=== PATIENT | male | born 1935 | race Caucasian/White ===

== ENCOUNTER 2018-08-29 01:06 | Observation (INO) | payer MEDICARE ==
[~2018-08-29] VITALS: Ht 210.8 cm; Wt 136.4 kg
[2018-08-29] VITALS (8 sets, daily range): BP systolic 93–122; BP diastolic 38–68; Ht 210.8 cm; Wt 136.4 kg
--- NOTE | ~2018-08-29 | MORECARE ---
CASE MANAGEMENT DISCHARGE SUMMARY PATIENT: JESSICA JOHNSTON UNIT: [id number] ADM DATE: 08/29/18 AGE: 83 : 35 SEX: M ROOM/BED: D.2234 AUTHOR: DEMI LEE PHYSICIAN: REFERRING PHYSICIAN: KIM PISANO MD DATE OF SERVICE: 08/30/18 Discharge Plan Patient Name: JESSICA JOHNSTON Facility: [facility]:[place] : 1935 Planned Disposition: Anticipated Discharge Date: Discharge Date: 08/29/2018 Expected LOS: 0 Initial Reviewer: [email or web address] Initial Review Date: 08/30/2018 Generated: 08/30/18 5:50 pm Patient Name: JESSICA JOHNSTON Page [id number] at 1650 All edits/amendments must be made on the electronic document DICTATION DATE: 08/30/181649 DRY CLEANER HELPER: GEETHA 08/30/181649 RPT#: [id number] DC DATE:08/29/18 STATUS: DIS IN [facility] [address] [facility] [place] [id number] END OF REPORT
[2018-08-29 01:02] LABS: ALBUMIN 3.2 g/dL (3.4-5.0); ANION GAP 13.7 mmol/L (8-16); BILIRUBIN - TOTAL 0.99 mg/dL (0.2-1.3); CALCIUM 8.3 mg/dL (8.5-10.1); CARBON DIOXIDE 25.5 mmol/L (21.0-32.0); CREATININE - SERUM 1.5 mg/dL (0.6-1.3); POTASSIUM - SERUM 4.2 mmol/L (3.5-5.1); PROTEIN - SERUM 6.9 g/dL (6.4-8.2)
[~2018-08-29 01:06] MED LIST: ACTOS30 MG PO; BAYER CHEWABLE81 MG PO; GLIMEPIRIDE4 MG PO; PAXIL20 MG PO; PRAVACHOL40 MG PO; TOPROL XL25 MG PO; [UNRECOGNIZED DRUG - REMARK]
[2018-08-29 01:10] LABS: KETONE - SERUM NEGATIVE (NEGATIVE)
[2018-08-29 01:20] LABS: MAGNESIUM - SERUM 1.3 mg/dL (1.8-2.4)
[2018-08-29 01:26] LABS: APPEARANCE CLEAR (CLEAR); BILIRUBIN NEGATIVE (NEGATIVE); COLOR YELLOW (YELLOW); GLUCOSE 250 mg/dL (NEGATIVE); KETONE NEGATIVE (NEGATIVE); NITRITE NEGATIVE (NEGATIVE); PROTEIN NEGATIVE (NEGATIVE); SPECIFIC GRAVITY 1.015 (1.005-1.020); UROBILINOGEN NORMAL (NORMAL)
[2018-08-29 01:47] LABS: BASOPHILS 0.1 % (0-2); EOSINOPHILS 0.1 % (0-7); HEMATOCRIT 41.7 % (42.0-54.0); IMMATURE GRANULOCYTES 0.6 % (0-5); MCH 30.6 pg (26.0-34.0); MCHC 33.6 g/dL (31.0-37.0); MCV 91.2 fL (80.0-100.0); MEAN PLATELET VOLUME 9.3 fL (7.4-10.4); NEUTROPHILS 90.2 % (40-80); PLATELET COUNT 169 10x3/uL (130-400); RBC 4.57 10x6/uL (4.20-6.10); RDW 13.4 % (11.5-14.5); WBC 15.7 10x3/uL (4.8-10.8)
[2018-09-04 17:09] LABS: AEROBE ID Final report (())
== END 2018-08-29 17:35 | disposition home or self-care (01) ==
LOC: D.ER 01:06 → D.MS 03:29 → OBSVTIME 03:29 → D.MS 03:29
PROVIDERS: Emergency Medicine; Family Medicine
DX: R50.9 Fever, unspecified (principal); F05 Delirium due to known physiological condition; E11.9 Type 2 diabetes mellitus without complications; Z79.84 Long term (current) use of oral hypoglycemic drugs; K21.9 Gastro-esophageal reflux disease without esophagitis; R53.1 Weakness

== ENCOUNTER → 2019-03-04 09:01 | Outpatient (CLI) | payer MEDICARE ==
[2018-08-29 12:52] VITALS: BMI 30.6
--- NOTE | 2019-03-08 12:26 | EC ---
PATIENT:JESSICA JOHNSTON DATE OF SERVICE: 03/04/19 SEX: M MEDICAL RECORD: [id number] DATE OF : 35 [facility] AGE OF PATIENT: 84 ADMISSION DATE: 03/04/19 REFERRING PHYSICIAN: INTERPRETING PHYSICIAN: CRICKET WATTS MD ECHOCARDIOGRAM REPORT ECHO CHARGES 4 ECHO COMPLETE Date: 03/04/19 CLINICAL DIAGNOSIS: CAD/TRICUSPID REGURG ECHOCARDIOGRAPHIC MEASUREMENTS (adult normal given) AC root (d.<3.7cm) 4.2 cm LV Septum d (<1.2 cm> 1.6 cm Valve Excursion 2.3 cm LV Septum (systole) 1.8 cm Left Atria (s.<4.0cm> 5.4 cm LVPW d(<1.2cm) 1.8 cm RV (d.<2.3cm) 5.3 cm LVPW (sytole) 2.1 cm LV diastole(<5.6CM) 5.6 cm MV E-F(>70mm/sec) cm LV systole 3.9 cm LVOT Diameter 1.9 cm MV exc.(>10mm) 1.5 cm Est.ejection fraction (50-75%) % DOPPLER: LVIT cm/sec A 75.0 cm/sec E 98.0 cm/sec LA cm/sec RVSP 32 mmHg LVOT 89 cm/sec AOP1/2T m/s Asc. Ao 110 cm/sec RVOT 102 cm/sec RA cm/sec PA 130 cm/sec AV Gradient Peak 4.87 mmHg AV Mean 2.22 mmHg AV Area 2.1 cm MV Gradient Peak 3.92 mmHg MV Mean 1.37 mmHg MV Area cm COMMENTS: Dispatcher Street Department: 2 MARYAM JENSEN University Administrator: 3 Dr. Knapp TAPE# pacs Pericardial Effusion N DATE OF SERVICE: Adequate 2-D, color-flow and spectral Doppler, and M-mode. Mild LVH. LV internal dimension is normal. Wall motion is normal. EF is greater than or equal to 55%. Aortic valve sclerosis without stenosis by Doppler interrogation. Left atrium dilated at 5.4 cm. Mitral valve shows no prolapse. Mild MR. Right-sided chambers is grossly normal. Trace TR. TRANSINT:[id number] Voice Confirmation ID: [id number] DOCUMENT ID: [id number] ECHOCARDIOGRAM REPORT [id number] JESSICA JOHNSTON GREGORY A MD at 1226 CC: [id number] DICTATION DATE: 03/07/19 1452 TERRITORY SALES MANAGER: 03/07/19 1626 DEP CLI 03/04/19 [facility] [address] [place] [address]
== END | disposition home or self-care (01) ==
LOC: D.HCCARDIO 09:00
PROVIDERS: ATTEND Internal Medicine Interventional Cardiology
DX: I25.10 Atherosclerotic heart disease of native coronary artery without angina pectoris (principal)

== ENCOUNTER → 2019-08-17 14:54 | Outpatient (CLI) | payer MEDICARE ==
[2018-08-29 12:52] VITALS: BMI 30.6
== END | disposition home or self-care (01) ==
LOC: D.US 14:54
PROVIDERS: ATTEND Family Medicine
DX: R60.0 Localized edema (principal)

== ENCOUNTER → 2020-03-15 10:36 | Outpatient (CLI) | payer MEDICARE, MEDICAID ==
[2018-08-29 12:52] VITALS: BMI 30.6
== END | disposition home or self-care (01) ==
LOC: D.HCCECHO 10:30
PROVIDERS: ATTEND Internal Medicine Interventional Cardiology
DX: I10 Essential (primary) hypertension (principal)

== ENCOUNTER 2021-02-05 19:09 | Emergency (ER) | payer MEDICARE, MEDICAID ==
[~2021-02-05] VITALS: Ht 182.9 cm; Wt 110.5 kg
[2021-02-05 19:35] VITALS: Ht 182.9 cm; Wt 110.5 kg
[2021-02-05 20:28] LABS: BASOPHILS 0.1 % (0-2); EOSINOPHILS 2.1 % (0-7); HEMATOCRIT 47.7 % (42.0-54.0); HEMOGLOBIN 15.4 g/dL (13.5-17.5); IMMATURE GRANULOCYTES 0.1 % (0-5); LYMPHOCYTE ABS# 1.67 10x3/uL (1.32-3.57); LYMPHOCYTES 24.8 % (15-50); MCH 30.1 pg (26.0-34.0); MCHC 32.3 g/dL (31.0-37.0); MCV 93.2 fL (80.0-100.0); MEAN PLATELET VOLUME 9.5 fL (7.4-10.4); MONOCYTES 7.9 % (2-11); NEUTROPHIL ABS# 4.37 10x3/uL (1.78-5.38); PLATELET COUNT 173 10x3/uL (130-400); RBC 5.12 10x6/uL (4.20-6.10); RDW 14.3 % (11.5-14.5); WBC 6.7 10x3/uL (4.8-10.8)
[2021-02-05 20:45] LABS: ANION GAP 11.3 mmol/L (8-16); CREATININE - SERUM 1.5 mg/dL (0.6-1.3); POTASSIUM - SERUM 4.3 mmol/L (3.5-5.1)
[2021-02-05 20:50] LABS: BILIRUBIN - TOTAL 1.04 mg/dL (0.2-1.3); PROTEIN - SERUM 7.9 g/dL (6.4-8.2)
[2021-02-05] MEDS ORDERED: NAPROXEN250 MG PO (21:01)
[2021-02-05 23:34] VITALS: BP 128/88
== END 2021-02-05 23:38 | disposition home or self-care (01) ==
LOC: D.ER 19:09
PROVIDERS: Family Medicine
DX: S20.219A Contusion of unspecified front wall of thorax, initial encounter (principal); W18.30XA Fall on same level, unspecified, initial encounter; Y93.9 Activity, unspecified; Y92.9 Unspecified place or not applicable; R07.89 Other chest pain; E11.9 Type 2 diabetes mellitus without complications; K21.9 Gastro-esophageal reflux disease without esophagitis; Z79.84 Long term (current) use of oral hypoglycemic drugs